=== PATIENT | female | born 1995 | race Caucasian/White ===

== ENCOUNTER 2016-07-24 06:03 | Emergency (ER) | payer MEDICAID ==
[~2016-07-24] VITALS: Ht 162.6 cm; Wt 56.7 kg
[2016-07-24 06:23] VITALS: BP 126/67
== END 2016-07-24 07:02 | disposition left against medical advice (07) ==
LOC: ER 06:10
DX: S00.451A Superficial foreign body of right ear, initial encounter (principal); Z53.21 Procedure and treatment not carried out due to patient leaving prior to being seen by health care provider